=== PATIENT | male | born 1960 | race Two or more races ===

== ENCOUNTER 2022-11-24 12:52 | Emergency (ER) | payer SELFPAY ==
[~2022-11-24] VITALS: Ht 165.1 cm; Wt 90.6 kg
[2022-11-24 13:30] VITALS: BP 167/99
[2022-11-24] MEDS ORDERED: ACET-1080 PO (14:26)
== END 2022-11-24 14:30 | disposition home or self-care (01) ==
LOC: ER 12:52
DX: S23.41XA Sprain of ribs, initial encounter (principal); E11.9 Type 2 diabetes mellitus without complications; I10 Essential (primary) hypertension; W18.09XA Striking against other object with subsequent fall, initial encounter; Y93.89 Activity, other specified; Y92.89 Other specified places as the place of occurrence of the external cause; Y99.8 Other external cause status
CPT/HCPCS: 71101; 93005